=== PATIENT | male | born 1950 | race African-American/Black ===

== ENCOUNTER 2020-11-12 03:27 | Observation (INO) | payer MEDICARE, MEDICAID, SELFPAY ==
[2020-11-12] VITALS (87 sets, daily range): BP systolic 104–220; BP diastolic 68–123; PULSE 77–99; RESP 12–48; TEMP 36.1–36.8; O2SAT 95–100
--- NOTE | 2020-11-12 03:40 | DI.RAD.S_ITS ---
PROCEDURE: XR CHEST 1V INDICATIONS: dyspnea TECHNIQUE: One view of the chest was acquired. COMPARISON: None. FINDINGS: Surgical changes and devices: Pacemaker in place.. Lungs and pleura: Lungs are abnormal, with large lung volumes but no pneumonia is found.. No pleural effusions or pneumothorax. Mediastinum: Mediastinal contours appear normal. Heart size is normal. Bones and chest wall: No suspicious bony lesions. Overlying soft tissues appear unremarkable. IMPRESSION: Pacemaker in place, large lung volumes, suspect COPD, no pneumonia found. 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 Dictated by: Vito Dumont M.D. on 11/12/2020 at 7:50 Approved by: Vito Dumont M.D. on 11/12/2020 at 7:51
--- NOTE | 2020-11-12 04:00 | ED.AMS ---
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 Rate 20 18 19 Blood Pressure 125/77 128/80 130/75 Pulse Oximetry 98 99 98 11/12/20 10:55 11/12/20 11:00 11/12/20 11:05 Pulse Rate 92 H 92 H 91 H Respiratory Rate 20 18 19 Blood Pressure 133/81 126/85 128/85 Pulse Oximetry 98 98 98 11/12/20 11:10 11/12/20 11:15 11/12/20 11:20 Pulse Rate 91 H 91 H 98 H Respiratory Rate 22 22 23 Blood Pressure 130/83 127/87 210/123 H Pulse Oximetry 97 97 99 11/12/20 11:26 11/12/20 11:30 11/12/20 11:42 Pulse Rate 91 H 92 H 93 H Respiratory Rate 20 21 25 H Blood Pressure 132/78 133/77 123/76 Pulse Oximetry 98 98 97 11/12/20 11:50 11/12/20 11:55 11/12/20 12:00 Pulse Rate 90 90 87 Respiratory Rate 17 28 H 35 H Blood Pressure 117/74 114/73 Pulse Oximetry 97 97 96 11/12/20 12:05 11/12/20 12:10 07/03/21 12:15 Pulse Rate 87 84 83 Respiratory Rate 22 25 H 17 Blood Pressure 117/72 120/77 122/86 Pulse Oximetry 96 97 95 11/12/20 12:20 11/12/20 12:26 11/12/20 12:30 Pulse Rate 83 82 83 Respiratory Rate 15 15 22 Blood Pressure 120/74 119/83 120/78 Pulse Oximetry 96 96 97 11/12/20 12:36 11/12/20 12:41 11/12/20 12:45 Pulse Rate 83 84 83 Respiratory Rate 18 Blood Pressure 133/81 113/76 135/82 Pulse Oximetry 98 97 98 11/12/20 12:50 11/12/20 12:55 11/12/20 13:00 Pulse Rate 80 80 79 Respiratory Rate Blood Pressure 136/86 126/82 130/84 Pulse Oximetry 97 98 98 11/12/20 13:05 11/12/20 13:10 11/12/20 13:20 Pulse Rate 79 81 79 Respiratory Rate 17 Blood Pressure 130/88 123/81 124/91 H Pulse Oximetry 98 97 98 11/12/20 13:26 11/12/20 13:30 11/12/20 13:35 Pulse Rate 78 78 80 Respiratory Rate Blood Pressure 125/91 H 111/87 127/87 Pulse Oximetry 97 98 98 11/12/20 13:56 11/12/20 14:00 11/12/20 14:23 Pulse Rate 80 88 86 Respiratory Rate 16 17 23 Blood Pressure 142/88 H 141/85 H 131/91 H Pulse Oximetry 98 97 99 11/12/20 14:30 Pulse Rate 81 Respiratory Rate 12 Blood Pressure 124/82 Pulse Oximetry 99 MDM - Altered Mental Status <Lloyd Caceres, DO - Last Filed: 11/13/20 06:22> Lab Data Result diagrams: 11/12/20 05:00 11/12/20 07:26 Labs: Lab Results 11/12/20 11/12/20 11/12/20 Range/Units 05:00 05:00 05:00 WBC 8.9 (4.5-11.0) X10^3/uL RBC 5.07 (4.5-5.9) X10^6/uL Hgb 15.4 (13.5-17.5) g/dL Hct 45.5 (41-53) % MCV 89.8 (80-100) fL MCH 30.3 (26-34) PG MCHC 33.7 (30-36) % RDW 15.5 H (11.6-14.8) % Plt Count 236 (150-400) X10^3/uL Neut % (Auto) 81.2 H (50-75) % Lymph % (Auto) 8.5 L (25-40) % [place] % (Auto) 5.5 (3-14) % Eos % (Auto) 0.5 L (2-4) % Baso % (Auto) 4.3 H (0-2) % Neut # (Auto) 7200 H (7763-2315) /uL Lymph # (Auto) 800 L (8736-4866) /uL [place] # (Auto) 500 (0-900) /uL Eos # (Auto) 0 (0-450) /uL Baso # (Auto) 400 H (0-100) /uL PT (10.1-12.7) SECONDS INR (0.9-1.3) APTT (26.4-36.2) SECONDS Sodium (137-145) mmol/L Potassium (3.4-5.1) mmol/L Chloride (98-107) mmol/L Carbon Dioxide (22-32) mmol/L BUN (9-20) mg/dL Creatinine (0.66-1.25) mg/dL Estimated GFR (>60) mL/min BUN/Creatinine Ratio (6-22) Glucose (80-110) mg/dL Lactate 1.7 (0.7-2.1) mmol/L Calcium (8.4-10.2) mg/dL Total Bilirubin (0.2-1.3) mg/dL AST (17-59) IU/L ALT (<50) IU/L Alkaline Phosphatase (38-126) U/L Ammonia (9-30) umol/L Total Creatine Kinase (55-170) U/L CK-MB (CK-2) (<2.37) ng/mL CK-MB (CK-2) Rel Index (1.5-5.0) % Troponin I (0.01-0.034) ng/mL NT-Pro-B Natriuret Pep (<125) pg/mL Total Protein (6.3-8.2) g/dL Albumin (3.5-5.0) g/dL Globulin (1.7-4.1) g/dL Albumin/Globulin Ratio (1.0-2.8) Procalcitonin (<0.5) ng/mL TSH (0.47-4.68) uIU/mL Prolactin (3.7-17.9) ng/mL Urine Color Urine Appearance Urine pH (4.5-8.0) Ur Specific [place] (1.000-1.035) Urine Protein (Negative) Urine Glucose (UA) (Negative) g/dL Urine Ketones (NEGATIVE) Urine Occult Blood (Negative) Urine Nitrate (Negative) Urine Bilirubin (NEGATIVE) Urine Urobilinogen (0.2) E.U./dL Ur Leukocyte Esterase (NEGATIVE) Urine RBC (0-5/HPF) Urine WBC (0-5/HPF) Urine Bacteria (None) Ur Culture Indicated? Salicylates < 1.0 (<20) mg/dL U Opiates 300ng/mL cut (Negative) Ur Oxycodone Screen (Negative) Urine Methadone Screen (Negative) Acetaminophen < 10 L (10-30) ug/mL Ur Barbiturates Screen (Negative) U Tricyclic Antidepress (Negative) Ur Phencyclidine Scrn (Negative) Ur Amphetamines Screen (Negative) U Methamphetamines Scrn (Negative) Ur MDMA Scrn (Ecstasy) (Negative) U Benzodiazepines Scrn (Negative) Urine Cocaine Screen (Negative) U Marijuana (THC) Screen (Negative) Ethyl Alcohol < 10 ( - 10) mg/dL SARS-CoV-2 (PCR) (Negative) 11/12/20 11/12/20 11/12/20 Range/Units 07:26 07:26 07:26 WBC (4.5-11.0) X10^3/uL RBC (4.5-5.9) X10^6/uL Hgb (13.5-17.5) g/dL Hct (41-53) % MCV (80-100) fL MCH (26-34) PG MCHC (30-36) % RDW (11.6-14.8) % Plt Count (150-400) X10^3/uL Neut % (Auto) (50-75) % Lymph % (Auto) (25-40) % [place] % (Auto) (3-14) % Eos % (Auto) (2-4) % Baso % (Auto) (0-2) % Neut # (Auto) (8474-7853) /uL Lymph # (Auto) (1973-5069) /uL [place] # (Auto) (0-900) /uL Eos # (Auto) (0-450) /uL Baso # (Auto) (0-100) /uL PT 13.8 H (10.1-12.7) SECONDS INR 1.2 (0.9-1.3) APTT 29 (26.4-36.2) SECONDS Sodium 138 (137-145) mmol/L Potassium 3.8 (3.4-5.1) mmol/L Chloride 102 (98-107) mmol/L Carbon Dioxide 27 (22-32) mmol/L BUN 17 (9-20) mg/dL Creatinine 0.79 (0.66-1.25) mg/dL Estimated GFR > 60.0 (>60) mL/min BUN/Creatinine Ratio 21.5 (6-22) Glucose 72 L (80-110) mg/dL Lactate (0.7-2.1) mmol/L Calcium 9.9 (8.4-10.2) mg/dL Total Bilirubin 0.9 (0.2-1.3) mg/dL AST 78 H (17-59) IU/L ALT 57 H (<50) IU/L Alkaline Phosphatase 65 (38-126) U/L Ammonia (9-30) umol/L Total Creatine Kinase (55-170) U/L CK-MB (CK-2) (<2.37) ng/mL CK-MB (CK-2) Rel Index (1.5-5.0) % Troponin I (0.01-0.034) ng/mL NT-Pro-B Natriuret Pep 9500 H (<125) pg/mL Total Protein 8.1 (6.3-8.2) g/dL Albumin 4.1 (3.5-5.0) g/dL Globulin 4.0 (1.7-4.1) g/dL Albumin/Globulin Ratio 1.0 (1.0-2.8) Procalcitonin 0.14 (<0.5) ng/mL TSH 0.621 (0.47-4.68) uIU/mL Prolactin 13.6 (3.7-17.9) ng/mL Urine Color Urine Appearance Urine pH (4.5-8.0) Ur Specific [place] (1.000-1.035) Urine Protein (Negative) Urine Glucose (UA) (Negative) g/dL Urine Ketones (NEGATIVE) Urine Occult Blood (Negative) Urine Nitrate (Negative) Urine Bilirubin (NEGATIVE) Urine Urobilinogen (0.2) E.U./dL Ur Leukocyte Esterase (NEGATIVE) Urine RBC (0-5/HPF) Urine WBC (0-5/HPF) Urine Bacteria (None) Ur Culture Indicated? Salicylates (<20) mg/dL U Opiates 300ng/mL cut (Negative) Ur Oxycodone Screen (Negative) Urine Methadone Screen (Negative) Acetaminophen (10-30) ug/mL Ur Barbiturates Screen (Negative) U Tricyclic Antidepress (Negative) Ur Phencyclidine Scrn (Negative) Ur Amphetamines Screen (Negative) U Methamphetamines Scrn (Negative) Ur MDMA Scrn (Ecstasy) (Negative) U Benzodiazepines Scrn (Negative) Urine Cocaine Screen (Negative) U Marijuana (THC) Screen (Negative) Ethyl Alcohol ( - 10) mg/dL SARS-CoV-2 (PCR) (Negative) 11/12/20 11/12/20 11/12/20 Range/Units 07:26 08:38 10:32 WBC (4.5-11.0) X10^3/uL RBC (4.5-5.9) X10^6/uL Hgb (13.5-17.5) g/dL Hct (41-53) % MCV (80-100) fL MCH (26-34) PG MCHC (30-36) % RDW (11.6-14.8) % Plt Count (150-400) X10^3/uL Neut % (Auto) (50-75) % Lymph % (Auto) (25-40) % [place] % (Auto) (3-14) % Eos % (Auto) (2-4) % Baso % (Auto) (0-2) % Neut # (Auto) (5266-0104) /uL Lymph # (Auto) (4163-3778) /uL [place] # (Auto) (0-900) /uL Eos # (Auto) (0-450) /uL Baso # (Auto) (0-100) /uL PT (10.1-12.7) SECONDS INR (0.9-1.3) APTT (26.4-36.2) SECONDS Sodium (137-145) mmol/L Potassium (3.4-5.1) mmol/L Chloride (98-107) mmol/L Carbon Dioxide (22-32) mmol/L BUN (9-20) mg/dL Creatinine (0.66-1.25) mg/dL Estimated GFR (>60) mL/min BUN/Creatinine Ratio (6-22) Glucose (80-110) mg/dL Lactate (0.7-2.1) mmol/L Calcium (8.4-10.2) mg/dL Total Bilirubin (0.2-1.3) mg/dL AST (17-59) IU/L ALT (<50) IU/L Alkaline Phosphatase (38-126) U/L Ammonia < 9 L (9-30) umol/L Total Creatine Kinase 374 H (55-170) U/L CK-MB (CK-2) 6.10 H (<2.37) ng/mL CK-MB (CK-2) Rel Index 1.6 (1.5-5.0) % Troponin I 0.072 H 0.067 H (0.01-0.034) ng/mL NT-Pro-B Natriuret Pep (<125) pg/mL Total Protein (6.3-8.2) g/dL Albumin (3.5-5.0) g/dL Globulin (1.7-4.1) g/dL Albumin/Globulin Ratio (1.0-2.8) Procalcitonin (<0.5) ng/mL TSH (0.47-4.68) uIU/mL Prolactin (3.7-17.9) ng/mL Urine Color Urine Appearance Urine pH (4.5-8.0) Ur Specific [place] (1.000-1.035) Urine Protein (Negative) Urine Glucose (UA) (Negative) g/dL Urine Ketones (NEGATIVE) Urine Occult Blood (Negative) Urine Nitrate (Negative) Urine Bilirubin (NEGATIVE) Urine Urobilinogen (0.2) E.U./dL Ur Leukocyte Esterase (NEGATIVE) Urine RBC (0-5/HPF) Urine WBC (0-5/HPF) Urine Bacteria (None) Ur Culture Indicated? Salicylates (<20) mg/dL U Opiates 300ng/mL cut (Negative) Ur Oxycodone Screen (Negative) Urine Methadone Screen (Negative) Acetaminophen (10-30) ug/mL Ur Barbiturates Screen (Negative) U Tricyclic Antidepress (Negative) Ur Phencyclidine Scrn (Negative) Ur Amphetamines Screen (Negative) U Methamphetamines Scrn (Negative) Ur MDMA Scrn (Ecstasy) (Negative) U Benzodiazepines Scrn (Negative) Urine Cocaine Screen (Negative) U Marijuana (THC) Screen (Negative) Ethyl Alcohol ( - 10) mg/dL SARS-CoV-2 (PCR) (Negative) 11/12/20 11/12/20 11/12/20 Range/Units 10:39 14:23 14:23 WBC (4.5-11.0) X10^3/uL RBC (4.5-5.9) X10^6/uL Hgb (13.5-17.5) g/dL Hct (41-53) % MCV (80-100) fL MCH (26-34) PG MCHC (30-36) % RDW (11.6-14.8) % Plt Count (150-400) X10^3/uL Neut % (Auto) (50-75) % Lymph % (Auto) (25-40) % [place] % (Auto) (3-14) % Eos % (Auto) (2-4) % Baso % (Auto) (0-2) % Neut # (Auto) (0129-2281) /uL Lymph # (Auto) (8428-1651) /uL [place] # (Auto) (0-900) /uL Eos # (Auto) (0-450) /uL Baso # (Auto) (0-100) /uL PT (10.1-12.7) SECONDS INR (0.9-1.3) APTT (26.4-36.2) SECONDS Sodium (137-145) mmol/L Potassium (3.4-5.1) mmol/L Chloride (98-107) mmol/L Carbon Dioxide (22-32) mmol/L BUN (9-20) mg/dL Creatinine (0.66-1.25) mg/dL Estimated GFR (>60) mL/min BUN/Creatinine Ratio (6-22) Glucose (80-110) mg/dL Lactate (0.7-2.1) mmol/L Calcium (8.4-10.2) mg/dL Total Bilirubin (0.2-1.3) mg/dL AST (17-59) IU/L ALT (<50) IU/L Alkaline Phosphatase (38-126) U/L Ammonia (9-30) umol/L Total Creatine Kinase (55-170) U/L CK-MB (CK-2) (<2.37) ng/mL CK-MB (CK-2) Rel Index (1.5-5.0) % Troponin I (0.01-0.034) ng/mL NT-Pro-B Natriuret Pep (<125) pg/mL Total Protein (6.3-8.2) g/dL Albumin (3.5-5.0) g/dL Globulin (1.7-4.1) g/dL Albumin/Globulin Ratio (1.0-2.8) Procalcitonin (<0.5) ng/mL TSH (0.47-4.68) uIU/mL Prolactin (3.7-17.9) ng/mL Urine Color Yellow Urine Appearance Clear Urine pH 5.0 (4.5-8.0) Ur Specific [place] 1.015 (1.000-1.035) Urine Protein Negative (Negative) Urine Glucose (UA) Negative (Negative) g/dL Urine Ketones Negative (NEGATIVE) Urine Occult Blood 2+ H (Negative) Urine Nitrate Negative (Negative) Urine Bilirubin Negative (NEGATIVE) Urine Urobilinogen 0.2 (0.2) E.U./dL Ur Leukocyte Esterase Negative (NEGATIVE) Urine RBC 0-1/hpf (0-5/HPF) Urine WBC 0-1/hpf (0-5/HPF) Urine Bacteria None seen (None) Ur Culture Indicated? Cult not indicated Salicylates (<20) mg/dL U Opiates 300ng/mL cut Negative (Negative) Ur Oxycodone Screen Negative (Negative) Urine Methadone Screen Negative (Negative) Acetaminophen (10-30) ug/mL Ur Barbiturates Screen Negative (Negative) U Tricyclic Antidepress Negative (Negative) Ur Phencyclidine Scrn Negative (Negative) Ur Amphetamines Screen Negative (Negative) U Methamphetamines Scrn Negative (Negative) Ur MDMA Scrn (Ecstasy) Negative (Negative) U Benzodiazepines Scrn Negative (Negative) Urine Cocaine Screen Positive H (Negative) U Marijuana (THC) Screen Negative (Negative) Ethyl Alcohol ( - 10) mg/dL SARS-CoV-2 (PCR) Negative (Negative) <Umm Rosas MD - Last Filed: 11/12/20 17:51> Lab Data Labs: Lab Results 11/12/20 11/12/20 11/12/20 Range/Units 05:00 05:00 05:00 WBC 8.9 (4.5-11.0) X10^3/uL RBC 5.07 (4.5-5.9) X10^6/uL Hgb 15.4 (13.5-17.5) g/dL Hct 45.5 (41-53) % MCV 89.8 (80-100) fL MCH 30.3 (26-34) PG MCHC 33.7 (30-36) % RDW 15.5 H (11.6-14.8) % Plt Count 236 (150-400) X10^3/uL Neut % (Auto) 81.2 H (50-75) % Lymph % (Auto) 8.5 L (25-40) % [place] % (Auto) 5.5 (3-14) % Eos % (Auto) 0.5 L (2-4) % Baso % (Auto) 4.3 H (0-2) % Neut # (Auto) 7200 H (3072-9500) /uL Lymph # (Auto) 800 L (4502-0255) /uL [place] # (Auto) 500 (0-900) /uL Eos # (Auto) 0 (0-450) /uL Baso # (Auto) 400 H (0-100) /uL PT (10.1-12.7) SECONDS INR (0.9-1.3) APTT (26.4-36.2) SECONDS Sodium (137-145) mmol/L Potassium (3.4-5.1) mmol/L Chloride (98-107) mmol/L Carbon Dioxide (22-32) mmol/L BUN (9-20) mg/dL Creatinine (0.66-1.25) mg/dL Estimated GFR (>60) mL/min BUN/Creatinine Ratio (6-22) Glucose (80-110) mg/dL Lactate 1.7 (0.7-2.1) mmol/L Calcium (8.4-10.2) mg/dL Total Bilirubin (0.2-1.3) mg/dL AST (17-59) IU/L ALT (<50) IU/L Alkaline Phosphatase (38-126) U/L Ammonia (9-30) umol/L Total Creatine Kinase (55-170) U/L CK-MB (CK-2) (<2.37) ng/mL CK-MB (CK-2) Rel Index (1.5-5.0) % Troponin I (0.01-0.034) ng/mL NT-Pro-B Natriuret Pep (<125) pg/mL Total Protein (6.3-8.2) g/dL Albumin (3.5-5.0) g/dL Globulin (1.7-4.1) g/dL Albumin/Globulin Ratio (1.0-2.8) Procalcitonin (<0.5) ng/mL TSH (0.47-4.68) uIU/mL Prolactin (3.7-17.9) ng/mL Urine Color Urine Appearance Urine pH (4.5-8.0) Ur Specific [place] (1.000-1.035) Urine Protein (Negative) Urine Glucose (UA) (Negative) g/dL Urine Ketones (NEGATIVE) Urine Occult Blood (Negative) Urine Nitrate (Negative) Urine Bilirubin (NEGATIVE) Urine Urobilinogen (0.2) E.U./dL Ur Leukocyte Esterase (NEGATIVE) Urine RBC (0-5/HPF) Urine WBC (0-5/HPF) Urine Bacteria (None) Ur Culture Indicated? Salicylates < 1.0 (<20) mg/dL U Opiates 300ng/mL cut (Negative) Ur Oxycodone Screen (Negative) Urine Methadone Screen (Negative) Acetaminophen < 10 L (10-30) ug/mL Ur Barbiturates Screen (Negative) U Tricyclic Antidepress (Negative) Ur Phencyclidine Scrn (Negative) Ur Amphetamines Screen (Negative) U Methamphetamines Scrn (Negative) Ur MDMA Scrn (Ecstasy) (Negative) U Benzodiazepines Scrn (Negative) Urine Cocaine Screen (Negative) U Marijuana (THC) Screen (Negative) Ethyl Alcohol < 10 ( - 10) mg/dL SARS-CoV-2 (PCR) (Negative) 11/12/20 11/12/20 11/12/20 Range/Units 07:26 07:26 07:26 WBC (4.5-11.0) X10^3/uL RBC (4.5-5.9) X10^6/uL Hgb (13.5-17.5) g/dL Hct (41-53) % MCV (80-100) fL MCH (26-34) PG MCHC (30-36) % RDW (11.6-14.8) % Plt Count (150-400) X10^3/uL Neut % (Auto) (50-75) % Lymph % (Auto) (25-40) % [place] % (Auto) (3-14) % Eos % (Auto) (2-4) % Baso % (Auto) (0-2) % Neut # (Auto) (0735-9760) /uL Lymph # (Auto) (2658-7783) /uL [place] # (Auto) (0-900) /uL Eos # (Auto) (0-450) /uL Baso # (Auto) (0-100) /uL PT 13.8 H (10.1-12.7) SECONDS INR 1.2 (0.9-1.3) APTT 29 (26.4-36.2) SECONDS Sodium 138 (137-145) mmol/L Potassium 3.8 (3.4-5.1) mmol/L Chloride 102 (98-107) mmol/L Carbon Dioxide 27 (22-32) mmol/L BUN 17 (9-20) mg/dL Creatinine 0.79 (0.66-1.25) mg/dL Estimated GFR > 60.0 (>60) mL/min BUN/Creatinine Ratio 21.5 (6-22) Glucose 72 L (80-110) mg/dL Lactate (0.7-2.1) mmol/L Calcium 9.9 (8.4-10.2) mg/dL Total Bilirubin 0.9 (0.2-1.3) mg/dL AST 78 H (17-59) IU/L ALT 57 H (<50) IU/L Alkaline Phosphatase 65 (38-126) U/L Ammonia (9-30) umol/L Total Creatine Kinase (55-170) U/L CK-MB (CK-2) (<2.37) ng/mL CK-MB (CK-2) Rel Index (1.5-5.0) % Troponin I (0.01-0.034) ng/mL NT-Pro-B Natriuret Pep 9500 H (<125) pg/mL Total Protein 8.1 (6.3-8.2) g/dL Albumin 4.1 (3.5-5.0) g/dL Globulin 4.0 (1.7-4.1) g/dL Albumin/Globulin Ratio 1.0 (1.0-2.8) Procalcitonin 0.14 (<0.5) ng/mL TSH 0.621 (0.47-4.68) uIU/mL Prolactin 13.6 (3.7-17.9) ng/mL Urine Color Urine Appearance Urine pH (4.5-8.0) Ur Specific [place] (1.000-1.035) Urine Protein (Negative) Urine Glucose (UA) (Negative) g/dL Urine Ketones (NEGATIVE) Urine Occult Blood (Negative) Urine Nitrate (Negative) Urine Bilirubin (NEGATIVE) Urine Urobilinogen (0.2) E.U./dL Ur Leukocyte Esterase (NEGATIVE) Urine RBC (0-5/HPF) Urine WBC (0-5/HPF) Urine Bacteria (None) Ur Culture Indicated? Salicylates (<20) mg/dL U Opiates 300ng/mL cut (Negative) Ur Oxycodone Screen (Negative) Urine Methadone Screen (Negative) Acetaminophen (10-30) ug/mL Ur Barbiturates Screen (Negative) U Tricyclic Antidepress (Negative) Ur Phencyclidine Scrn (Negative) Ur Amphetamines Screen (Negative) U Methamphetamines Scrn (Negative) Ur MDMA Scrn (Ecstasy) (Negative) U Benzodiazepines Scrn (Negative) Urine Cocaine Screen (Negative) U Marijuana (THC) Screen (Negative) Ethyl Alcohol ( - 10) mg/dL SARS-CoV-2 (PCR) (Negative) 07/07/3111/12/20 11/12/20 Range/Units 07:26 08:38 10:32 WBC (4.5-11.0) X10^3/uL RBC (4.5-5.9) X10^6/uL Hgb (13.5-17.5) g/dL Hct (41-53) % MCV (80-100) fL MCH (26-34) PG MCHC (30-36) % RDW (11.6-14.8) % Plt Count (150-400) X10^3/uL Neut % (Auto) (50-75) % Lymph % (Auto) (25-40) % [place] % (Auto) (3-14) % Eos % (Auto) (2-4) % Baso % (Auto) (0-2) % Neut # (Auto) (0766-3364) /uL Lymph # (Auto) (9675-3760) /uL [place] # (Auto) (0-900) /uL Eos # (Auto) (0-450) /uL Baso # (Auto) (0-100) /uL PT (10.1-12.7) SECONDS INR (0.9-1.3) APTT (26.4-36.2) SECONDS Sodium (137-145) mmol/L Potassium (3.4-5.1) mmol/L Chloride (98-107) mmol/L Carbon Dioxide (22-32) mmol/L BUN (9-20) mg/dL Creatinine (0.66-1.25) mg/dL Estimated GFR (>60) mL/min BUN/Creatinine Ratio (6-22) Glucose (80-110) mg/dL Lactate (0.7-2.1) mmol/L Calcium (8.4-10.2) mg/dL Total Bilirubin (0.2-1.3) mg/dL AST (17-59) IU/L ALT (<50) IU/L Alkaline Phosphatase (38-126) U/L Ammonia < 9 L (9-30) umol/L Total Creatine Kinase 374 H (55-170) U/L CK-MB (CK-2) 6.10 H (<2.37) ng/mL CK-MB (CK-2) Rel Index 1.6 (1.5-5.0) % Troponin I 0.072 H 0.067 H (0.01-0.034) ng/mL NT-Pro-B Natriuret Pep (<125) pg/mL Total Protein (6.3-8.2) g/dL Albumin (3.5-5.0) g/dL Globulin (1.7-4.1) g/dL Albumin/Globulin Ratio (1.0-2.8) Procalcitonin (<0.5) ng/mL TSH (0.47-4.68) uIU/mL Prolactin (3.7-17.9) ng/mL Urine Color Urine Appearance Urine pH (4.5-8.0) Ur Specific [place] (1.000-1.035) Urine Protein (Negative) Urine Glucose (UA) (Negative) g/dL Urine Ketones (NEGATIVE) Urine Occult Blood (Negative) Urine Nitrate (Negative) Urine Bilirubin (NEGATIVE) Urine Urobilinogen (0.2) E.U./dL Ur Leukocyte Esterase (NEGATIVE) Urine RBC (0-5/HPF) Urine WBC (0-5/HPF) Urine Bacteria (None) Ur Culture Indicated? Salicylates (<20) mg/dL U Opiates 300ng/mL cut (Negative) Ur Oxycodone Screen (Negative) Urine Methadone Screen (Negative) Acetaminophen (10-30) ug/mL Ur Barbiturates Screen (Negative) U Tricyclic Antidepress (Negative) Ur Phencyclidine Scrn (Negative) Ur Amphetamines Screen (Negative) U Methamphetamines Scrn (Negative) Ur MDMA Scrn (Ecstasy) (Negative) U Benzodiazepines Scrn (Negative) Urine Cocaine Screen (Negative) U Marijuana (THC) Screen (Negative) Ethyl Alcohol ( - 10) mg/dL SARS-CoV-2 (PCR) (Negative) 11/12/20 11/12/20 11/12/20 Range/Units 10:39 14:23 14:23 WBC (4.5-11.0) X10^3/uL RBC (4.5-5.9) X10^6/uL Hgb (13.5-17.5) g/dL Hct (41-53) % MCV (80-100) fL MCH (26-34) PG MCHC (30-36) % RDW (11.6-14.8) % Plt Count (150-400) X10^3/uL Neut % (Auto) (50-75) % Lymph % (Auto) (25-40) % [place] % (Auto) (3-14) % Eos % (Auto) (2-4) % Baso % (Auto) (0-2) % Neut # (Auto) (9037-5725) /uL Lymph # (Auto) (5050-8877) /uL [place] # (Auto) (0-900) /uL Eos # (Auto) (0-450) /uL Baso # (Auto) (0-100) /uL PT (10.1-12.7) SECONDS INR (0.9-1.3) APTT (26.4-36.2) SECONDS Sodium (137-145) mmol/L Potassium (3.4-5.1) mmol/L Chloride (98-107) mmol/L Carbon Dioxide (22-32) mmol/L BUN (9-20) mg/dL Creatinine (0.66-1.25) mg/dL Estimated GFR (>60) mL/min BUN/Creatinine Ratio (6-22) Glucose (80-110) mg/dL Lactate (0.7-2.1) mmol/L Calcium (8.4-10.2) mg/dL Total Bilirubin (0.2-1.3) mg/dL AST (17-59) IU/L ALT (<50) IU/L Alkaline Phosphatase (38-126) U/L Ammonia (9-30) umol/L Total Creatine Kinase (55-170) U/L CK-MB (CK-2) (<2.37) ng/mL CK-MB (CK-2) Rel Index (1.5-5.0) % Troponin I (0.01-0.034) ng/mL NT-Pro-B Natriuret Pep (<125) pg/mL Total Protein (6.3-8.2) g/dL Albumin (3.5-5.0) g/dL Globulin (1.7-4.1) g/dL Albumin/Globulin Ratio (1.0-2.8) Procalcitonin (<0.5) ng/mL TSH (0.47-4.68) uIU/mL Prolactin (3.7-17.9) ng/mL Urine Color Yellow Urine Appearance Clear Urine pH 5.0 (4.5-8.0) Ur Specific [place] 1.015 (1.000-1.035) Urine Protein Negative (Negative) Urine Glucose (UA) Negative (Negative) g/dL Urine Ketones Negative (NEGATIVE) Urine Occult Blood 2+ H (Negative) Urine Nitrate Negative (Negative) Urine Bilirubin Negative (NEGATIVE) Urine Urobilinogen 0.2 (0.2) E.U./dL Ur Leukocyte Esterase Negative (NEGATIVE) Urine RBC 0-1/hpf (0-5/HPF) Urine WBC 0-1/hpf (0-5/HPF) Urine Bacteria None seen (None) Ur Culture Indicated? Cult not indicated Salicylates (<20) mg/dL U Opiates 300ng/mL cut Negative (Negative) Ur Oxycodone Screen Negative (Negative) Urine Methadone Screen Negative (Negative) Acetaminophen (10-30) ug/mL Ur Barbiturates Screen Negative (Negative) U Tricyclic Antidepress Negative (Negative) Ur Phencyclidine Scrn Negative (Negative) Ur Amphetamines Screen Negative (Negative) U Methamphetamines Scrn Negative (Negative) Ur MDMA Scrn (Ecstasy) Negative (Negative) U Benzodiazepines Scrn Negative (Negative) Urine Cocaine Screen Positive H (Negative) U Marijuana (THC) Screen Negative (Negative) Ethyl Alcohol ( - 10) mg/dL SARS-CoV-2 (PCR) Negative (Negative) MDM Narrative Medical decision making narrative: 70-year-old gentleman with a history of significant coronary artery disease, recent admits for hypertensive crisis with cognitive deficits and confusion. He reports now that he was having some chest pain earlier in the afternoon was driving became confused pulled off to the side of the road was found by police was eventually brought to the emergency department. Blood pressures were significantly elevated IV access was difficult. After IV access was obtained he was given all of his typical outpatient medications including amlodipine 5 mg, carvedilol 12.5 mg clonidine 0.3 mg isosorbide mononitrate 30 mg lisinopril 20 mg prazosin 5 mg and 80 mg of IV Lasix. As he continued to complain of chest pain, had a positive troponin, remains somewhat confused, had blood pressures in the 220/110 systolic range he was also started on a nicardipine drip. Over the next hours his blood pressure came down nicely. Multiple attempts were made to transfer him to a higher level of care with inpatient cardiology available however beds are not available. As his blood pressure is come down he is slightly more alert, his chest pain never was lower than a 5/10 however he was behaviorally absolutely pain free throughout his entire stay. Just prior to transfer to the floor in care for hospitalist Service, it became clear that the nicardipine drip that he was presumed to have been on for the course of the afternoon was calculated in appropriately and he was having minimal dose of this. It was completely discontinued and at this point it is clear that his oral hypertensive medications were effective in reducing his hypertensive crisis. He does continue to have signs and symptoms of congestive heart failure and it will be admitted for further evaluation and observation. <Umm Rosas MD - Last Filed: 11/12/20 17:51> Critical Care Time Critical Care Time: Yes Total Critical Care Time: 46 Attestation: Critical care time is separate from other billable procedures. This critical care time includes consultation with family and other consulting doctors, review of records, and interpretation of data from labs, EKGs and imaging as well as managements of hypertensive crisis with IV blood pressure medications, IV Lasix evaluation for acute coronary syndrome and acute neurologic changes. Discharge Plan Departure Patient Disposition: Admitted As Inpatient Clinical Impression: Hypertensive crisis Altered mental status Qualifiers: Altered mental status type: disorientation Qualified Code(s): R41.0 - Disorientation, unspecified Congestive heart failure Qualifiers: Heart failure type: unspecified Heart failure chronicity: acute on chronic Qualified Code(s): I50.9 - Heart failure, unspecified Chest pain Qualifiers: Chest pain type: unspecified Qualified Code(s): R07.9 - Chest pain, unspecified Admit Date/Time: 11/12/20 14:59 Admit Provider: Gold Ashby
[2020-11-12 05:17] LABS: Add Manual Diff / Slide Review NO; Basophils Absolute Auto 400 /uL (0-100); Basophils Percent Auto 4.3 % (0-2); Eosinophils Absolute Auto 0 /uL (0-450); Eosinophils Percent Auto 0.5 % (2-4); Hematocrit 45.5 % (41-53); Hemoglobin 15.4 g/dL (13.5-17.5); Lymphocytes Absolute Auto 800 /uL (1100-4500); Lymphocytes Percent Auto 8.5 % (25-40); Mean Corpuscular HGB Conc 33.7 % (30-36); Mean Corpuscular Hemoglobin 30.3 PG (26-34); Mean Corpuscular Volume 89.8 fL (80-100); Monocytes Absolute Auto 500 /uL (0-900); Monocytes Percent Auto 5.5 % (3-14); Neutrophils Absolute Auto 7200 /uL (1500-7000); Neutrophils Percent Auto 81.2 % (50-75); Platelet Count 236 X10^3/uL (150-400); Red Blood Cell Count 5.07 X10^6/uL (4.5-5.9); Red Cell Distribution Width 15.5 % (11.6-14.8); White Blood Cell Count 8.9 X10^3/uL (4.5-11.0)
[2020-11-12 05:25] LABS: Acetaminophen < 10 ug/mL (10-30); Ethanol (ETOH) < 10 mg/dL; Salicylate < 1.0 mg/dL (<20)
[2020-11-12 05:27] LABS: Lactate (Lactic Acid) 1.7 mmol/L (0.7-2.1)
[2020-11-12] MEDS: carvediloL 12.5 MG TABLET PO ×2 (06:36→20:48)
--- NOTE | 2020-11-12 06:51 | PC.NURSE ---
we were unable to obtain IV access,lab was unable to obtain blood,I leslie some blood from left hand, unable to access EJ vein or right central line.PICC person paged.
--- NOTE | 2020-11-12 07:28 | DI.RAD.S_ITS ---
PROCEDURE: XR CHEST 1V INDICATIONS: line placement TECHNIQUE: One view of the chest was acquired. COMPARISON: [facility], CR, XR CHEST 1V, 11/12/2020, 4:13. FINDINGS: Surgical changes and devices: Pacemaker. Right IJ line tip projects to SVC right atrial junction. Lungs and pleura: Lungs are clear. No pleural effusions or pneumothorax. Mediastinum: Mediastinal contours appear normal. Heart size is normal. Bones and chest wall: No suspicious bony lesions. Overlying soft tissues appear unremarkable. IMPRESSION: 1. Central line in satisfactory position. 2. No evidence acute pulmonary process. Dictated by: Gregory Dillon M.D. on 11/12/2020 at 7:17 Approved by: Gregory Dillon M.D. on 11/12/2020 at 7:17
[2020-11-12] MEDS: SODIUM CHLORIDE 0.9% 1,000 ML 150 ML IV ×2 (07:47→15:03)
[2020-11-12] MEDS: cloNIDine 0.1 MG TABLET 0.3 MG PO ×2 (07:47→20:48)
[2020-11-12] MEDS: AMLODIPINE 5 MG TABLET PO (07:47)
[2020-11-12] MEDS: HYDROMORPHONE 1 MG INJ IV ×2 (07:49→11:45)
[2020-11-12] MEDS: TORSEMIDE 10 MG TABLET 40 MG PO (07:51)
[2020-11-12] MEDS: lisinopriL 20 MG TABLET PO ×2 (07:52→20:47)
[2020-11-12] MEDS: clonazePAM 0.5 MG TABLET PO ×2 (07:53→20:48)
[2020-11-12] MEDS: ISOSORBIDE MONONITRATE ER 30 MG TABLET PO (07:53)
[2020-11-12 07:56] LABS: INR 1.2 (0.9-1.3); Prothrombin Time 13.8 SECONDS (10.1-12.7)
[2020-11-12 07:58] LABS: PTT Partial Thromboplastin Tim 29 SECONDS (26.4-36.2)
[2020-11-12 08:00] LABS: Creatine Kinase 374 U/L (55-170)
[2020-11-12 08:02] LABS: Alanine Aminotransferase 57 IU/L (<50); Albumin 4.1 g/dL (3.5-5.0); Alkaline Phosphatase 65 U/L (38-126); Aspartate Aminotransferase 78 IU/L (17-59); BUN Creatinine Ratio 21.5 (6-22); Bilirubin Total 0.9 mg/dL (0.2-1.3); Blood Urea Nitrogen 17 mg/dL (9-20); Calcium 9.9 mg/dL (8.4-10.2); Carbon Dioxide 27 mmol/L (22-32); Chloride 102 mmol/L (98-107); Estimated Glomerular Filt Rate > 60.0 mL/min (>60); Glucose 72 mg/dL (80-110); HEMOLYSIS 43 (0-50); Potassium 3.8 mmol/L (3.4-5.1); Sodium 138 mmol/L (137-145); Total Protein 8.1 g/dL (6.3-8.2)
[2020-11-12 08:11] LABS: NT-proBNP (BNP-Adult 18+) 9500 pg/mL (<125)
[2020-11-12 08:13] LABS: Troponin I 0.072 ng/mL (0.01-0.034)
[2020-11-12 08:16] LABS: CKMB % Relative Index 1.6 % (1.5-5.0)
[2020-11-12 08:19] LABS: Procalcitonin 0.14 ng/mL (<0.5); Prolactin 13.6 ng/mL (3.7-17.9)
[2020-11-12 08:38] LABS: Thyroid Stimulating Hormone 0.621 uIU/mL (0.47-4.68)
[2020-11-12 09:11] LABS: Ammonia (NH3) < 9 umol/L (9-30)
[2020-11-12] MEDS: NITROGLYCERIN OINT 1 INCH/GM OINT...G. TOP (10:08)
[2020-11-12] MEDS: HEPARIN DRIP 25,000 UNIT/500 ML IV.SOLN 20 UNIT IV (10:10)
[2020-11-12] MEDS: HEPARIN 5,000 UNIT/ML VIAL 5000 UNIT IV (10:10)
[2020-11-12] MEDS: NICARDIPINE 25 MG in SODIUM CHLORIDE 0.9% 240 ML 50 ML IV (10:21)
[2020-11-12 11:05] LABS: Troponin I 0.067 ng/mL (0.01-0.034)
[2020-11-12 11:47] LABS: COVID19 -Nasal RAPID Negative (Negative)
--- NOTE | 2020-11-12 14:34 | PC.NURSE ---
Pt had reported he was still unable to void, upon further questioning discovered he has enlarged prostate and often difficulty voiding. He reports episodes of incontinence and issues with urinary retention. Bed was found to be soiled with urine, linens changed, spoke with Dr. Rosas about need for catheter. Bladder scanner shows 300mls in bladder. Verbal order received for urinary catheter.
[2020-11-12 14:43] LABS: Bacteria Urine None Seen
[2020-11-12] MEDS: FUROSEMIDE 100 MG/10 ML VIAL 80 MG IV (15:01)
[2020-11-12 15:09] LABS: Appearance Urine UA CLEAR; Bilirubin Urine UA NEGATIVE (NEGATIVE); Color Urine UA YELLOW; Glucose Urine UA NEGATIVE (Negative); Ketones Urine UA NEGATIVE (NEGATIVE); Leukocyte Esterase Urine UA NEGATIVE (NEGATIVE); Nitrite Urine UA NEGATIVE (Negative); Occult Blood Urine UA 2+ (Negative); Protein Urine UA NEGATIVE (Negative); Specific Gravity Urine UA 1.015 (1.000-1.035); Urobilinogen Urine UA 0.2 E.U./dL (0.2)
[2020-11-12 15:10] LABS: Culture Indicated Urine Cult Not Indicated; RBC Urine 0-1/HPF (0-5/HPF); WBC Urine 0-1/HPF (0-5/HPF)
[2020-11-12 15:12] LABS: Ur Creatinine Normal (Normal); Ur Specific Gravity Normal (Normal); Urine pH Normal (Normal)
[2020-11-12 15:13] LABS: UR Morphine/Opiate cutoff 300 Negative (Negative); Urine Amphetamines Negative (Negative); Urine Barbiturates Negative (Negative); Urine Benzodiazepines Negative (Negative); Urine Cocaine Positive (Negative); Urine MDMA Negative (Negative); Urine Methadone Negative (Negative); Urine Methamphetamines Negative (Negative); Urine Oxycodone Negative (Negative); Urine Phencyclidine Negative (Negative); Urine Tetrahydrocannabinol Negative (Negative); Urine Tricyclic Antidepressant Negative (Negative)
--- NOTE | 2020-11-12 16:53 | PC.NURSE ---
1615: At this time noted Nicardipine drip has been running at 5ml/hr instead of 50ml/hr, patients blood pressure stable at 124/78. Dr. Rosas informed and order given to d/c Nicardipin drip at this time. ICU admission to be maintained.
[2020-11-12 17:40] LABS: Troponin I 0.059 ng/mL (0.01-0.034)
[2020-11-12 18:29] LABS: PTT Partial Thromboplastin Tim > 400 SECONDS (26.4-36.2)
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
[2020-11-12] MEDS: QUETIAPINE 25 MG TABLET 75 MG PO (20:48)
[2020-11-12] MEDS: APIXABAN 5 MG TABLET PO (20:48)
[2020-11-12] MEDS: GABAPENTIN 300 MG CAPSULE PO (20:48)
[2020-11-12] MEDS: OXYCODONE/ACETAMINOPHEN 5/325 TABLET 2 TAB PO (21:51)
[2020-11-12] MEDS: diphenhydrAMINE 25 MG TABLET 50 MG PO (21:51)
[2020-11-12 21:56] LABS: Magnesium 1.7 mg/dL (1.6-2.3)
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
[2020-11-13] VITALS (47 sets, daily range): BP systolic 86–121; BP diastolic 53–84; PULSE 58–97; RESP 12–33; TEMP 36.2–37.1; O2SAT 93–100
[2020-11-13] MEDS: ALBUTEROL 2.5 MG/3 ML NEB (ADULT) INH ×6 (02:38→23:32)
[2020-11-13] MEDS: SODIUM CHLORIDE 0.9% FLUSH 10 ML IV ×3 (04:47→21:09)
[2020-11-13 05:58] LABS: Troponin I 0.078 ng/mL (0.01-0.034)
--- NOTE | 2020-11-13 06:20 | PC.NURSE ---
Lending Consultant Note-Patient has slept throughout the night, oriented x3 when roused for care, neb tx given at 0230 per request, denied chest pain or pressure, SR with multi-focal PVCs, SpO2 >94% on RA, LS diminished with intermittent audible wheezes. BP 90s-109/50s-60s MAP >65, UOP 160ml via Davis. AM Troponin 0.078. The above information reported to HAND SPRING REPAIRER, CMP ordered.
[2020-11-13 06:29] LABS: Alanine Aminotransferase 42 IU/L (<50); Albumin 3.3 g/dL (3.5-5.0); Albumin Globulin Ratio 1.1 (1.0-2.8); Alkaline Phosphatase 41 U/L (38-126); Aspartate Aminotransferase 50 IU/L (17-59); Bilirubin Total 0.5 mg/dL (0.2-1.3); Blood Urea Nitrogen 27 mg/dL (9-20); Calcium 8.8 mg/dL (8.4-10.2); Carbon Dioxide 33 mmol/L (22-32); Chloride 100 mmol/L (98-107); Estimated Glomerular Filt Rate 46.1 mL/min (>60); Globulin 3.1 g/dL (1.7-4.1); Glucose 108 mg/dL (80-110); HEMOLYSIS 34 (0-50); Potassium 3.2 mmol/L (3.4-5.1); Sodium 138 mmol/L (137-145); Total Protein 6.4 g/dL (6.3-8.2)
[2020-11-13] MEDS: BUDESONIDE 0.5 MG/2 ML NEB INH ×2 (07:30→19:49)
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
[2020-11-13] MEDS: lisinopriL 20 MG TABLET PO ×2 (08:47→21:08)
[2020-11-13] MEDS: SERTRALINE 50 MG TABLET 150 MG PO (08:48)
[2020-11-13] MEDS: QUETIAPINE 25 MG TABLET 75 MG PO ×2 (08:49→21:09)
[2020-11-13] MEDS: TAMSULOSIN 0.4 MG CAPSULE PO (08:49)
[2020-11-13] MEDS: OXYCODONE/ACETAMINOPHEN 5/325 TABLET 2 TAB PO ×2 (08:49→21:08)
[2020-11-13] MEDS: CLOPIDOGREL 75 MG TABLET PO (08:50)
[2020-11-13] MEDS: POTASSIUM CHLORIDE 10 MEQ TAB PO ×2 (08:50→17:04)
[2020-11-13] MEDS: cloNIDine 0.1 MG TABLET 0.3 MG PO ×2 (08:50→21:08)
[2020-11-13] MEDS: APIXABAN 5 MG TABLET PO ×2 (08:51→21:08)
[2020-11-13] MEDS: FINASTERIDE 5 MG TABLET PO (08:51)
[2020-11-13] MEDS: ISOSORBIDE MONONITRATE ER 30 MG TABLET PO (08:51)
[2020-11-13] MEDS: PANTOPRAZOLE DR 40 MG TABLET PO (08:52)
[2020-11-13] MEDS: clonazePAM 0.5 MG TABLET PO ×2 (08:52→21:08)
[2020-11-13] MEDS: carvediloL 12.5 MG TABLET PO ×2 (08:52→21:08)
--- NOTE | 2020-11-13 13:14 | PC.NURSE ---
PT REPORTS CHEST/NECK PAIN ( CHRONIC ) AND NSR JPER TELE- AM MEDS TO INCLUDE A PERCOCET HAVE BEEN EFFECTIVE - PT HAS MAINTAINED BEDREST AWAITING PT EVAL- LUNGS DIM BUT MOSTLY CLEAR CENTRAL LINE TO RIGHT UPPER CHEST AND SCD'S IN PLACE
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
[2020-11-13] MEDS: PRAZOSIN HCL 5 MG CAPSULE PO (21:07)
[2020-11-13] MEDS: GABAPENTIN 300 MG CAPSULE PO (21:07)
[2020-11-14] VITALS (8 sets, daily range): BP systolic 108–131; BP diastolic 61–82; PULSE 62–71; RESP 15–18; TEMP 36.3–36.6; O2SAT 96–99
[2020-11-14 05:33] LABS: Alanine Aminotransferase 40 IU/L (<50); Albumin 3.2 g/dL (3.5-5.0); Albumin Globulin Ratio 1.1 (1.0-2.8); Alkaline Phosphatase 47 U/L (38-126); Aspartate Aminotransferase 43 IU/L (17-59); BUN Creatinine Ratio 24.6 (6-22); Bilirubin Total 0.3 mg/dL (0.2-1.3); Blood Urea Nitrogen 28 mg/dL (9-20); Calcium 9.1 mg/dL (8.4-10.2); Carbon Dioxide 32 mmol/L (22-32); Chloride 102 mmol/L (98-107); Estimated Glomerular Filt Rate > 60.0 mL/min (>60); Globulin 2.9 g/dL (1.7-4.1); Glucose 117 mg/dL (80-110); HEMOLYSIS < 15 (0-50); Potassium 3.5 mmol/L (3.4-5.1); Sodium 137 mmol/L (137-145); Total Protein 6.1 g/dL (6.3-8.2)
[2020-11-14] MEDS: BUDESONIDE 0.5 MG/2 ML NEB INH (07:25)
[2020-11-14] MEDS: ALBUTEROL 2.5 MG/3 ML NEB (ADULT) INH ×3 (07:25→14:54)
[2020-11-14] MEDS: OXYCODONE/ACETAMINOPHEN 5/325 TABLET 2 TAB PO (11:04)
[2020-11-14] MEDS: QUETIAPINE 25 MG TABLET 75 MG PO (11:05)
[2020-11-14] MEDS: PANTOPRAZOLE DR 40 MG TABLET PO (11:06)
[2020-11-14] MEDS: clonazePAM 0.5 MG TABLET PO (11:06)
[2020-11-14] MEDS: TAMSULOSIN 0.4 MG CAPSULE PO (11:06)
[2020-11-14] MEDS: CLOPIDOGREL 75 MG TABLET PO (11:06)
[2020-11-14] MEDS: lisinopriL 20 MG TABLET PO (11:07)
[2020-11-14] MEDS: cloNIDine 0.1 MG TABLET 0.3 MG PO (11:07)
[2020-11-14] MEDS: SERTRALINE 50 MG TABLET 150 MG PO (11:09)
[2020-11-14] MEDS: APIXABAN 5 MG TABLET PO (11:09)
[2020-11-14] MEDS: ISOSORBIDE MONONITRATE ER 30 MG TABLET PO (11:10)
[2020-11-14] MEDS: SODIUM CHLORIDE 0.9% FLUSH 10 ML IV (11:11)
--- NOTE | 2020-11-14 11:27 | RT ---
Patient given a full e-cylinder oxygen tank from [place] his current oxygen provider for discharge. Rt called [facility] and spoke to her about following up with patient on his cell phone.
--- NOTE | 2020-11-14 12:15 | PT.IPTN ---
Current Diagnoses Hypertensive urgency (11/12/20) Physical Therapy Treatment Note M2 PT-IP Current Condition Start: 11/13/20 15:09 Freq: Status: Active Protocol: Document 11/14/20 12:04 MA (Rec: 11/14/20 12:49 MA [id number]) Physical Therapy Current Condition Current Condition Evaluation Date 11/13/20 Treatment Diagnosis Weakness Onset Date Acute on chronic, many medical co-morbidities Precautions Other Precautions Fall risk, Tele M3 PT-IP Subjective Start: 11/13/20 15:09 Freq: Status: Active Protocol: Document 11/14/20 12:04 MA (Rec: 11/14/20 12:49 MA [id number]) Subjective Physical Therapy Visit Type Type Treatment Note Visit Start Time 11:35 Visit Stop Time 12:00 Total Visit Minutes 32 Notes Split treatment 11:35-12:00 12:15-12:22 Number of FINANCIAL BUSINESS ANALYST Visits 1 Physical Therapy Visit Comments Patient Comments Pt is agreeable to PT. He states he uses his walker more than his cane but left his rollator at [facility] because it did not fit in his car. Therapy Pain Assessment Pain When Pain Assessed During Mobility Pain Present Pain Present Pain Reported Location Low Back Pain Behaviors Facial Grimacing Pain Management Techniques Re-positioning M4 PT-IP Mobility and Gait Start: 11/13/20 15:09 Freq: Status: Active Protocol: Document 11/14/20 12:04 MA (Rec: 11/14/20 12:49 MA [id number]) PT-Bed Mobility Assessment Supine to Sit Supine to Sit Standby Assistance Scooting Scooting to Edge of Bed Standby Assistance PT-Transfer Assessment Sit to and From Stand Sit to and from Stand Standby Assistance Equipment Transfer Assistive Device Gait Belt,Front Wheeled Walker Orthotic/Prosthetic Devices or Brace: No Transfers Transfer Destination Bed,Chair Transfer Technique Stand Step Pivot Transfer Ability Level of Assist Standby Assistance Comments Mobility Comments Pt is SBA for all transfers. He is able to complete 136 feet with gait belt and FWW SBA before returning to sit on bed for break due to LBP. Pt is then able to complete 75 ft with gait belt and SPC, CGA with heavy lean to R side due to prior stroke. Gait Assessment Gait Gait Assistance Required: Standby Assistance,Contact Guard Assist,1 Person Assist Distance (Feet) 211 Able to Maintain Weight Bearing Status Yes During Gait Assistive Devices Assistive Device Gait Belt Orthotic/Prosthetic Devices or Brace: No Gait Deviations General Gait Pattern Decreased Stride Length, Decreased Feet Clearance, Lateral Trunk Lean,Narrow Based Gait Factors Limiting Gait Function Factors Limiting Gait Function Decreased Sensation,Poor Balance,Poor Safety Awareness Comments Gait Comments See mobility section above. Dispensed FWW for home due to pt unsafe with cane. PT-Balance Assessment Sitting Balance and Reactions Static Sitting Balance Ability Good Dynamic Sitting Balance Ability Good Standing Balance and Reactions Static Standing Balance Ability Good Dynamic Standing Balance Ability Fair M5 PT-IP Objective Assessments Start: 11/13/20 15:09 Freq: Status: Active Protocol: Document 11/13/20 15:29 MB (Rec: 11/13/20 16:20 MB [id number]) Orientation Orientation/Cognition Level of Alertness Alert Orientation Name,Age,Birthday,Month,Date, Year,Day of Week,Place, Situation Language Function Ability No Deficits Noted Safety Awareness Understands Safety Issues Memory Description No Deficits Noted Comments Pt does have some questions about the surgery he is supposed to have this week and does appear to have decreased insight about that. Gross Range of Motion Upper Extremity ROM Assessment Within Functional Limits Lower Extremity ROM Assessment Within Functional Limits Strength Upper Extremity Strength Assessment Within Functional Limits Comments Strength Comments LE MMT deferred this date in setting of reported vascular changes M6 PT-IP Treatment Start: 11/13/20 15:09 Freq: Status: Active Protocol: Document 11/14/20 12:04 MA (Rec: 11/14/20 12:49 MA [id number]) Physical Therapy Treatment Education Education Provided Safety Equipment Issued Equipment Type and Company FWW, PAC MED Other Treatments Other Treatment Performed Adjusted pt's dispensed walker to correct height. Discussed importance of using walker vs cane for balance. M7 PT-IP Assessment and Plan Start: 11/13/20 15:09 Freq: Status: Active Protocol: Document 11/14/20 12:04 MA (Rec: 11/14/20 12:49 MA [id number]) PT Summary Assessment and Plan Potential Rehabilitation Potential Fair Status of Condition at Evaluation Evolving Summary Impairments Pain,Strength,Sensation, Activity Tolerance Assessment Summary Adriel was able to complete gait training with gait belt and FWW today SBA. He is CGA with cane due to heavy lateral lean R. FINANCIAL BUSINESS ANALYST dispensed FWW due to safety concerns regarding d/c with cane. Pt states he has rollator he left at hotel because he could not fit it in his car. FINANCIAL BUSINESS ANALYST unable to confirm pt has access to belongings left at [facility] at this time and encourages pt to use walker vs. cane upon d/c for safey. Pt shows good understanding and walker is set to correct height and left in room. Nurses informed of pt's mobility status. Goals Bed Mobility Goal Independent Transfer Goal Independent Gait Goal Independent,Cane Gait Distance 100 Days to Meet Goals 5 Frequency of Treatment Frequency Of Treatment Once a Day Treatment Plan Physical Therapy Treatment Plan Bed Mobility Training,Transfer Training,Gait Training, Therapeutic Exercise,Balance Retraining,Neuromuscular Re-ed Other Recommendations and Next Treatment Increase gait distance Focus Precautions Other Precautions Tele Recommendations To Nursing Amount of Assist Needed 1 Person Assist Discharge Recommendations PT Discharge Recommendations Home Other Discharge Recommendations If case management has resource information about housing for veterans and a social work specialist that can follow his case at d/c, pt may benefit from these Equipment Needed for Home Before FWW dispensed for pt to d/c Discharge home with Transportation Needs at Discharge Private Vehicle
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
--- NOTE | 2020-11-14 15:14 | PC.NURSE ---
AM shift Pt is d/c pending awaiting social work taxi voucher and motel for [employer].
--- NOTE | 2020-11-14 16:13 | CM.DPC ---
DCP Continued: Physical therapy issued a FWW and cleared patient to discharge home. Chaplain Izaguirre has called and coordinated with the [employer] to allow patient to get into his car to collect his clothing and other supplies needed for the night. Secured Taxi transportation with via [employer]. Nursing provided with the voucher. Additional resources provided to patient was the number for the National call center for homeless Veterans . PLAN: Patient is D/C from hospital per nursing he was able to pay for his car to get out of [facility] and chose to drive from hospital vs using the Taxi voucher. RON Helms MSW Student
--- NOTE | 2020-11-14 16:22 | PC.NURSE ---
Addendum entered by Ivette Brunson R.N. 11/14/20 17:39: When brought downstairs it was discovered that his car had been towed. Security looked into the matter and it turns out that the patient's car was repossessed. A cab voucher was given for the patient to be transported [facility] where he has a room paid for tonight. Original Note: Patient's discharge done by gerard MILLIGAN. Patient is sitting in his room fully dressed waiting for tow truck to come unlock his car. Patient says he had enough money to pay the tow truck so he is going to drive himself- case management notified, taxi voucher returned. Patient has no further questions or concerns and is eager to leave. Tele off, IV removed by gerard MILLIGAN.
== END 2020-11-14 16:15 | disposition home or self-care (01) ==
LOC: ED 07:34 → ICU 17:51 → AC 11-14 15:57
PROVIDERS: Emergency Medicine; Nurse Practitioner Family; Admitting Provider Internal Medicine; Emergency Provider Emergency Medicine; Referring Provider Nurse Practitioner; Visit Provider Internal Medicine
DX: I16.0 Hypertensive urgency (principal); G93.41 Metabolic encephalopathy; I50.22 Chronic systolic (congestive) heart failure; F14.90 Cocaine use, unspecified, uncomplicated; R07.9 Chest pain, unspecified; I11.0 Hypertensive heart disease with heart failure; I48.0 Paroxysmal atrial fibrillation; Z79.01 Long term (current) use of anticoagulants; I25.10 Atherosclerotic heart disease of native coronary artery without angina pectoris; Z95.5 Presence of coronary angioplasty implant and graft; Z87.891 Personal history of nicotine dependence; J45.909 Unspecified asthma, uncomplicated; J44.9 Chronic obstructive pulmonary disease, unspecified; I73.9 Peripheral vascular disease, unspecified; Z59.0 Homelessness; Z20.822 Contact with and (suspected) exposure to COVID-19; R06.02 Shortness of breath; I25.2 Old myocardial infarction; Z95.0 Presence of cardiac pacemaker
CPT/HCPCS: 36415; 36592; 51798; 71045; 80053; 80305; 80320; 80329; 81001; 82140; 82550; 82553; 83605; 83735; 83880; 84145; 84146; 84443; 84484; 85025; 85610; 85730; 87040; 87635; 87797; 93005; 94640; 94760; 96361; 96365; 96366; 96368; 96375; 96376; 97116; 97161; 99285; 99291; C9803; G0378; G0480; J1170; J1642; J1644; J1940; J7613

== ENCOUNTER 2020-11-15 10:44 | Emergency (ER) | payer MEDICARE, MEDICAID, SELFPAY ==
[2020-11-15] VITALS (24 sets, daily range): BP systolic 159–237; BP diastolic 80–126; PULSE 67–88; RESP 16–33; TEMP 36.7; O2SAT 95–100
--- NOTE | 2020-11-15 10:50 | DI.RAD.S_ITS ---
PROCEDURE: XR CHEST 1V INDICATIONS: chest pain TECHNIQUE: One view of the chest was acquired. COMPARISON: [facility], CR, XR CHEST 1V, 11/12/2020, 7:35. FINDINGS: Surgical changes and devices: Pacemaker is unchanged. Lungs and pleura: Lungs are clear. No pleural effusions or pneumothorax. Mediastinum: Mediastinal contours appear normal. Heart size is enlarged. Bones and chest wall: No suspicious bony lesions. Overlying soft tissues appear unremarkable. IMPRESSION: No acute pulmonary process. Dictated by: Shannan Wooten M.D. on 11/15/2020 at 11:28 Approved by: Shannan Wooten M.D. on 11/15/2020 at 11:28
--- NOTE | 2020-11-15 10:50 | DI.CT.S_ITS ---
PROCEDURE: CT HEAD/BRAIN WO CON INDICATIONS: weakness right side, several months, hypertension TECHNIQUE: Noncontrast 4.5 mm thick angled axial sections acquired from the foramen magnum to the vertex, with coronal and sagittal reformats. For radiation dose reduction, the following was used: automated exposure control, adjustment of mA and/or kV according to patient size. COMPARISON: [facility], CT, CT BRAIN WO CON, 11/05/2016, 16:56. FINDINGS: Image quality: Excellent. CSF spaces: Basal cisterns are patent. No extra-axial fluid collections. The ventricles are symmetric in size and shape. Brain: No intracranial bleeds or masses. There is cerebral volume loss for age, with resultant ventricular and sulcal prominence. There are periventricular and deep white matter chronic small vessel ischemic changes. There is intracranial internal carotid artery atherosclerosis. Skull and face: Calvarium and visualized facial bones appear intact, without suspicious lesions. Sinuses: Visualized sinuses and mastoids are clear. IMPRESSION: 1. No acute intracranial process. 2. Moderate atrophy and chronic microvascular ischemic changes. The above findings are concordant with preliminary report. Dictated by: Shannan Wooten M.D. on 11/15/2020 at 11:21 Approved by: Shannan Wooten M.D. on 11/15/2020 at 11:23
--- NOTE | 2020-11-15 11:00 | ED_ITS ---
HPI - Chest Pain General Chief Complaint: Chest Pain Stated Complaint: CP Time Seen by Provider: 11/15/20 10:50 Source: EMS Mode of arrival: EMS Limitations: no limitations History of Present Illness HPI narrative: This a 70-year-old male who comes to emergency department with complaint of chest pain. Patient has a history of being former smoker with a history of CA, coronary artery disease, CHF and pacemaker who was seen in the department for altered mental status and hypertensive emergency, patient had central line placed secondary to difficulty of access and a nicardipine drip was started patient was transitioned to oral hypertensive and admitted for observation. Patient does have a history of substance abuse and had difficult venous access and was positive for cocaine on his last ER visit 3 days ago. Patient states that his vehicle where his medications are kept was repossessed and he does not have have them available and he has not been able to take his antihypertensives and is quite hypertensive here in the department. Patient states he is currently homeless. He was given a voucher by social Work and was staying at the local hotel. Patient follows with cardiology at [facility]. Related Data Home Medications Medication Instructions Recorded Confirmed acetylcysteine 600 mg capsule 600 mg PO BID 11/12/20 11/12/20 albuterol sulfate 2.5 mg INHALATION Q6H PRN 11/12/20 11/12/20 albuterol sulfate 90 mcg/actuation 2 inh INHALATION Q6H PRN 11/12/20 11/12/20 breath activated powder inhaler apixaban 5 mg tablet (Eliquis) 5 mg PO BID 11/12/20 11/12/20 carvedilol 12.5 mg tablet 12.5 mg PO BID 11/12/20 11/12/20 clonazepam 0.5 mg tablet 0.5 mg PO BID 11/12/20 11/12/20 clonidine HCl 0.3 mg tablet 0.3 mg PO BID 11/12/20 11/12/20 clopidogrel 75 mg tablet 75 mg PO DAILY 11/12/20 11/12/20 finasteride 5 mg tablet 5 mg PO DAILY 11/12/20 11/12/20 gabapentin 300 mg capsule 300 mg PO BEDTIME 11/12/20 11/12/20 isosorbide mononitrate 30 mg 30 mg PO DAILY 11/12/20 11/12/20 tablet,extended release 24 hr lisinopril 20 mg tablet 20 mg PO BID 11/12/20 11/12/20 nitroglycerin 0.4 mg sublingual 0.4 mg SUBLINGUAL PRN PRN 11/12/20 11/12/20 tablet omeprazole 40 mg capsule,delayed 40 mg PO DAILY 11/12/20 11/12/20 release oxycodone-acetaminophen 5 mg-325 1 tab PO Q4H PRN 11/12/20 11/12/20 mg tablet prazosin 5 mg capsule 5 mg PO BEDTIME 11/12/20 11/12/20 promethazine 12.5 mg tablet 12.5 mg PO Q6H PRN 11/12/20 11/12/20 quetiapine 150 mg tablet,extended 150 mg PO BEDTIME 11/12/20 11/12/20 release 24 hr (Seroquel XR) sertraline 100 mg tablet 150 mg PO DAILY 11/12/20 11/12/20 spironolactone 50 mg tablet 50 mg PO DAILY 11/12/20 11/12/20 tamsulosin 0.4 mg capsule 0.4 mg PO DAILY 11/12/20 11/12/20 torsemide 20 mg tablet 20 mg PO DAILY 11/12/20 11/12/20 Previous Rx's Medication Instructions Recorded albuterol sulfate 2.5 mg INHALATION Q4H PRN #15 ml 11/15/20 apixaban 5 mg tablet (Eliquis) 5 mg PO BID #60 tab 11/15/20 carvedilol 12.5 mg tablet 12.5 mg PO BID #60 tab 11/15/20 clonidine HCl 0.3 mg tablet 0.3 mg PO BID #60 tab 11/15/20 clopidogrel 75 mg tablet 75 mg PO DAILY #30 tab 11/15/20 finasteride 5 mg tablet 5 mg PO DAILY #30 tab 11/15/20 gabapentin 300 mg capsule 300 mg PO BEDTIME #30 cap 11/15/20 isosorbide mononitrate 30 mg 30 mg PO DAILY #30 tab 11/15/20 tablet,extended release 24 hr lisinopril 20 mg tablet 20 mg PO BID #60 tab 11/15/20 nitroglycerin 0.4 mg sublingual 0.4 mg SUBLINGUAL Q5-15M PRN #10 11/15/20 tablet tab prazosin 5 mg capsule 5 mg PO BEDTIME #30 cap 11/15/20 quetiapine 150 mg tablet,extended 150 mg PO BEDTIME #30 tab 11/15/20 release 24 hr sertraline 50 mg tablet 50 mg PO DAILY #30 tab 11/15/20 spironolactone 50 mg tablet 50 mg PO DAILY #30 tab 11/15/20 torsemide 20 mg tablet 20 mg PO DAILY #30 tab 11/15/20 Allergies Allergy/AdvReac Type Severity Reaction Status Date / Time morphine Allergy Verified 11/12/20 08:27 Review of Systems Review of Systems ROS Unobtainable: All systems reviewed & are unremarkable except as noted in HPI and below Patient History Social History household members: none Smoking Status: Never smoker Smoking Status: Never smoker alcohol intake frequency: a few times a month Substance Use Type: crack/cocaine Exam Narrative Exam Narrative: GEN: well nourished, well appearing male, alert and oriented x 3, patient appears to be in mild distress. HEENT: Atraumatic, pupils are equal round reactive to light, extraocular movements are intact, nares are clear, throat is clear without any exudates, erythema, tonsillar enlargement or uvular deviation HEART: Regular rate and rhythm without murmur, clicks, rubs. LUNGS:Lungs clear to auscultation, no wheezes, rales, crackles, chest moves symmetrically ABD:bowel sounds normal, soft, non-tender, no guarding, rebound, rigidity, no masses noted, no hepatosplenomegaly :No CVA tenderness MSCL: Non-tender, no muscle atrophy, muscles strength 5/5 upper and lower extremities, full range of motion NEURO:CN 2-12 intact, sensation normal SKIN: No rash or other skin changes. Initial Vital Signs Initial Vital Signs: Vital Signs Temperature 98.1 F 11/15/20 10:44 Pulse Rate 78 11/15/20 10:44 Respiratory Rate 28 H 11/15/20 10:44 Blood Pressure 236/123 H 11/15/20 10:44 Pulse Oximetry 95 11/15/20 10:44 Course Orders Ordered: Discontinued Medications Amlodipine Besylate (Amlodipine 5 Mg Tablet) 5 mg PO NOW ONE Stop: 11/15/20 10:53 Last Admin: 11/15/20 11:22 Dose: 5 mg Documented by: ORLANDO Apixaban (Apixaban 5 Mg Tablet) 5 mg PO NOW ONE Stop: 11/15/20 14:46 Last Admin: 11/15/20 15:04 Dose: 5 mg Documented by: ROMY Aspirin (Aspirin 81 Mg Chew Tab) 324 mg PO NOW ONE Stop: 11/15/20 14:27 Last Admin: 11/15/20 15:04 Dose: 324 mg Documented by: ROMY Carvedilol (Carvedilol 12.5 Mg Tablet) 12.5 mg PO NOW ONE Stop: 11/15/20 10:53 Last Admin: 11/15/20 11:23 Dose: 12.5 mg Documented by: ORLANDO Clonazepam (Clonazepam 0.5 Mg Tablet) 0.5 mg PO NOW ONE Stop: 11/15/20 14:47 Last Admin: 11/15/20 15:03 Dose: 0.5 mg Documented by: ROMY Clonidine HCl (Clonidine 0.1 Mg Tablet) 0.3 mg PO NOW ONE Stop: 11/15/20 16:00 Last Admin: 11/15/20 16:27 Dose: 0.3 mg Documented by: ROMY Clopidogrel Bisulfate (Clopidogrel 75 Mg Tablet) 75 mg PO NOW ONE Stop: 11/15/20 16:01 Last Admin: 11/15/20 16:27 Dose: 75 mg Documented by: ROMY Furosemide (Furosemide 40 Mg/4 Ml Vial) 40 mg IV NOW ONE Stop: 11/15/20 11:02 Last Admin: 11/15/20 15:15 Dose: Not Given Documented by: OLIVER Furosemide (Furosemide 40 Mg Tablet) 40 mg PO NOW ONE Stop: 11/15/20 15:17 Last Admin: 11/15/20 15:21 Dose: 40 mg Documented by: ROMY Hydromorphone HCl (Hydromorphone 0.5 Mg Inj) 0.5 mg IV NOW ONE Stop: 11/15/20 14:46 Last Admin: 11/15/20 15:50 Dose: 0.5 mg Documented by: ROMY Sodium Chloride (Normal Saline 0.9%) 1,000 mls @ 150 mls/hr IV CONT TRINA Last Infusion: 11/15/20 18:20 Dose: 0 mls/hr Documented by: Infusion: 11/15/20 15:51 Dose: 150 mls/hr Documented by: Infusion: 11/15/20 15:25 Dose: 0 mls/hr Documented by: Admin: 11/15/20 15:05 Dose: 150 mls/hr Documented by: ROMY Isosorbide Mononitrate (Isosorbide Mononitrate Er 30 Mg Tablet) 30 mg PO NOW ONE Stop: 11/15/20 10:53 Last Admin: 11/15/20 11:22 Dose: 30 mg Documented by: ORLANDO Lisinopril (Lisinopril 20 Mg Tablet) 20 mg PO NOW ONE Stop: 11/15/20 10:53 Last Admin: 11/15/20 11:23 Dose: 20 mg Documented by: ORLANDO Nitroglycerin (Nitroglycerin 0.4 Mg Sl Tab) 0.4 mg SL [id number] PRN PRN Reason: chest pain Last Admin: 11/15/20 12:30 Dose: 0.4 mg Documented by: Admin: 11/15/20 11:35 Dose: 0.4 mg Documented by: Admin: 11/15/20 11:23 Dose: 0.4 mg Documented by: ORLANDO Spironolactone (Spironolactone 25 Mg Tablet) 50 mg PO NOW ONE Stop: 11/15/20 16:01 Reevaluation(s) Reevaluation #1: Patient BP improved here in the department with patient's home medications which he states he has not taken since discharge. Consultations Consultation #1: Dr. Taylor, patient troponin trending downwards and BP is improving in department with no new EKG changes. Plan to restart patient's home medications and they are happy to follow up with patient. Vital Signs Vital signs: Vital Signs - 8 hr 11/15/20 10:44 11/15/20 11:07 11/15/20 11:19 Temperature 98.1 F Pulse Rate 78 78 69 Respiratory Rate 28 H 33 H 19 Blood Pressure 236/123 H 204/106 H Pulse Oximetry 95 100 100 11/15/20 11:30 11/15/20 11:31 11/15/20 11:34 Temperature Pulse Rate 88 83 84 Respiratory Rate 22 Blood Pressure 237/114 H 172/86 H Pulse Oximetry 100 100 99 11/15/20 11:35 11/15/20 11:56 11/15/20 12:00 Temperature Pulse Rate 87 83 79 Respiratory Rate Blood Pressure 172/86 H 165/126 H Pulse Oximetry 100 100 11/15/20 12:01 11/15/20 12:30 11/15/20 12:31 Temperature Pulse Rate 77 70 69 Respiratory Rate Blood Pressure 182/94 H 178/91 H Pulse Oximetry 100 100 100 11/15/20 13:00 11/15/20 13:30 11/15/20 13:47 Temperature Pulse Rate 67 72 75 Respiratory Rate Blood Pressure 175/90 H 184/102 H Pulse Oximetry 100 100 100 11/15/20 14:00 11/15/20 14:30 11/15/20 15:00 Temperature Pulse Rate 71 71 73 Respiratory Rate Blood Pressure 163/87 H 168/85 H 190/93 H Pulse Oximetry 100 100 100 11/15/20 15:30 Temperature Pulse Rate 71 Respiratory Rate Blood Pressure 184/90 H Pulse Oximetry 100 MDM - Chest Pain Lab Data Result diagrams: 11/15/20 13:40 11/15/20 13:40 Labs: Lab Results 11/15/20 11/15/20 11/15/20 Range/Units 13:40 13:40 13:40 WBC 7.4 (4.5-11.0) X10^3/uL RBC 4.55 (4.5-5.9) X10^6/uL Hgb 13.7 (13.5-17.5) g/dL Hct 41.5 (41-53) % MCV 91.1 (80-100) fL MCH 30.2 (26-34) PG MCHC 33.1 (30-36) % RDW 15.4 H (11.6-14.8) % Plt Count 177 (150-400) X10^3/uL Neut % (Auto) 67.3 (50-75) % Lymph % (Auto) 13.9 L (25-40) % Barry % (Auto) 12.0 (3-14) % Eos % (Auto) 5.6 H (2-4) % Baso % (Auto) 1.2 (0-2) % Neut # (Auto) 5000 (0246-3567) /uL Lymph # (Auto) 1000 L (6220-0839) /uL Barry # (Auto) 900 (0-900) /uL Eos # (Auto) 400 (0-450) /uL Baso # (Auto) 100 (0-100) /uL PT 12.9 H (10.1-12.7) SECONDS INR 1.1 (0.9-1.3) APTT 39 H D (26.4-36.2) SECONDS Sodium 139 (137-145) mmol/L Potassium 4.0 (3.4-5.1) mmol/L Chloride 101 (98-107) mmol/L Carbon Dioxide 34 H (22-32) mmol/L BUN 18 (9-20) mg/dL Creatinine 0.79 (0.66-1.25) mg/dL Estimated GFR > 60.0 (>60) mL/min BUN/Creatinine Ratio 22.8 H (6-22) Glucose 95 (80-110) mg/dL Calcium 9.7 (8.4-10.2) mg/dL Total Bilirubin 0.8 (0.2-1.3) mg/dL AST 60 H (17-59) IU/L ALT 56 H (<50) IU/L Alkaline Phosphatase 61 (38-126) U/L Total Creatine Kinase 78 D (55-170) U/L CK-MB (CK-2) TNP CK-MB (CK-2) Rel Index TNP Troponin I 0.038 H (0.01-0.034) ng/mL NT-Pro-B Natriuret Pep 4210 H (<125) pg/mL Total Protein 7.8 (6.3-8.2) g/dL Albumin 4.0 (3.5-5.0) g/dL Globulin 3.8 (1.7-4.1) g/dL Albumin/Globulin Ratio 1.1 (1.0-2.8) Lipase 25 (23-300) U/L SARS-CoV-2 (PCR) (Negative) 11/15/20 Range/Units 13:45 WBC (4.5-11.0) X10^3/uL RBC (4.5-5.9) X10^6/uL Hgb (13.5-17.5) g/dL Hct (41-53) % MCV (80-100) fL MCH (26-34) PG MCHC (30-36) % RDW (11.6-14.8) % Plt Count (150-400) X10^3/uL Neut % (Auto) (50-75) % Lymph % (Auto) (25-40) % Barry % (Auto) (3-14) % Eos % (Auto) (2-4) % Baso % (Auto) (0-2) % Neut # (Auto) (7859-5164) /uL Lymph # (Auto) (6651-8999) /uL Barry # (Auto) (0-900) /uL Eos # (Auto) (0-450) /uL Baso # (Auto) (0-100) /uL PT (10.1-12.7) SECONDS INR (0.9-1.3) APTT (26.4-36.2) SECONDS Sodium (137-145) mmol/L Potassium (3.4-5.1) mmol/L Chloride (98-107) mmol/L Carbon Dioxide (22-32) mmol/L BUN (9-20) mg/dL Creatinine (0.66-1.25) mg/dL Estimated GFR (>60) mL/min BUN/Creatinine Ratio (6-22) Glucose (80-110) mg/dL Calcium (8.4-10.2) mg/dL Total Bilirubin (0.2-1.3) mg/dL AST (17-59) IU/L ALT (<50) IU/L Alkaline Phosphatase (38-126) U/L Total Creatine Kinase (55-170) U/L CK-MB (CK-2) CK-MB (CK-2) Rel Index Troponin I (0.01-0.034) ng/mL NT-Pro-B Natriuret Pep (<125) pg/mL Total Protein (6.3-8.2) g/dL Albumin (3.5-5.0) g/dL Globulin (1.7-4.1) g/dL Albumin/Globulin Ratio (1.0-2.8) Lipase (23-300) U/L SARS-CoV-2 (PCR) Negative (Negative) Imaging Data Chest x-ray: Radiologist's Impression: Adriel De Oliveira 70 M [address] [id number] ReportSigned Patient: Adriel De OliveirasMR#: [id number]: 1950Acct:[id number]/Sex: 70 / MDate of Service: 11/15/20Lo: EDAccession Number: [id number] Procedure: XR chest 1V Ordering Provider: Sandra Vaughan D.O. PROCEDURE: XR CHEST 1V INDICATIONS: chest pain TECHNIQUE: One view of the chest was acquired. COMPARISON: [facility], CR, XR CHEST 1V, 11/12/2020, 7:35. FINDINGS: Surgical changes and devices: Pacemaker is unchanged. Lungs and pleura: Lungs are clear. No pleural effusions or pneumothorax. Mediastinum: Mediastinal contours appear normal. Heart size is enlarged. Bones and chest wall: No suspicious bony lesions. Overlying soft tissues appear unremarkable. IMPRESSION: No acute pulmonary process. Dictated by: Shannan Wooten M.D. on 11/15/2020 at 11:28 Approved by: Shannan Wooten M.D. on 11/15/2020 at 11:28 CT scan - head: Radiologist's Impression: Adriel De Oliveira 70 M [address] [id number] Scan ReportSigned Patient: Adriel De OliveiraR#: [id number]: 1950Acct:[id number]/Sex: 70 / MDate of Service: 11/15/20Loc: EDAccession Number: [id number] Procedure: CT head/brain wo con Ordering Provider: Sandra Vaughan D.O. PROCEDURE: CT HEAD/BRAIN WO CON INDICATIONS: weakness right side, several months, hypertension TECHNIQUE: Noncontrast 4.5 mm thick angled axial sections acquired from the foramen magnum to the vertex, with coronal and sagittal reformats. For radiation dose reduction, the following was used: automated exposure control, adjustment of mA and/or kV according to patient size. COMPARISON: [facility], CT, CT BRAIN WO CON, 11/05/2016, 16:56. FINDINGS: Image quality: Excellent. CSF spaces: Basal cisterns are patent. No extra-axial fluid collections. The ventricles are symmetric in size and shape. Brain: No intracranial bleeds or masses. There is cerebral volume loss for age, with resultant ventricular and sulcal prominence. There are periventricular and deep white matter chronic small vessel ischemic changes. There is intracranial internal carotid artery atherosclerosis. Skull and face: Calvarium and visualized facial bones appear intact, without suspicious lesions. Sinuses: Visualized sinuses and mastoids are clear. IMPRESSION: 1. No acute intracranial process. 2. Moderate atrophy and chronic microvascular ischemic changes. The above findings are concordant with preliminary report. Dictated by: Shannan Wooten M.D. on 11/15/2020 at 11:21 Approved by: Shannan Wooten M.D. on 11/15/2020 at 11:23 ECG Data Interpretation: Sinus rhythm rate of 75 NE 170 QRS of 98 QTC of 415. Patient has ST changes in lateral leads. Elevation in V1 through V4 with depression V5 6. Patient has prior EKG from the 11/12 which appears similar with no acute changes or changing morphology. Patient has other prior EKGs which also appears similar. MDM Narrative Medical decision making narrative: 70-year-old male who comes to emergency department patient returns with chest pain, hypertension with no new EKG changes and downward trending troponin. Patient unable to take his home medications he was given these had his blood pressure began to improve. BNP is also improving here in the department. Patient medications are not accessible to him at this time and after discussion with Cardiology decision is made the patient would be safe to discharge home but will refill his home medications. These were reviewed with patient, prescriptions were sent to local pharmacy. Patient currently does not have a home to live in and social Work was included in conversation to help assist patient with placement for at least the next 24 h ours. Discharge Plan Departure Patient Disposition: Home Clinical Impression: Chest pain Activity Restrictions/Additional Instructions: Please refill your medications and take these regularly. It is important to take your blood pressure medications daily. Prescriptions sent to [facility]. I did speak with your cardiology team. Please contact them to follow up. Your blood pressure today has been improved in comparison to yesterday. Your heart enzyme has also been improved here today in comparison to the last 24 hours and is trending downwards. Return for new or worsening symptoms, lightheadedness or passing out, increasing swelling or your extremities coming worsening pain, shortness of breath, persistent vomiting or other new or concerning symptoms. Prescriptions: New albuterol sulfate 2.5 mg /3 mL (0.083 %) solution for nebulization 2.5 mg inhalation Q4H PRN (Reason: shortness of breath or wheezing) Qty: 15 RF: 0 carvedilol 12.5 mg tablet 12.5 mg PO BID Qty: 60 RF: 0 clonidine HCl 0.3 mg tablet 0.3 mg PO BID Qty: 60 RF: 0 clopidogrel 75 mg tablet 75 mg PO DAILY Qty: 30 RF: 0 Eliquis 5 mg tablet 5 mg PO BID Qty: 60 RF: 0 finasteride 5 mg tablet 5 mg PO DAILY Qty: 30 RF: 0 gabapentin 300 mg capsule 300 mg PO BEDTIME Qty: 30 RF: 0 isosorbide mononitrate 30 mg tablet extended release 24 hr 30 mg PO DAILY Qty: 30 RF: 0 lisinopril 20 mg tablet 20 mg PO BID Qty: 60 RF: 0 nitroglycerin 0.4 mg tablet, sublingual 0.4 mg sublingual Q5-15M PRN (Reason: chest pain) Qty: 10 RF: 0 prazosin 5 mg capsule 5 mg PO BEDTIME Qty: 30 RF: 0 quetiapine 150 mg tablet extended release 24 hr 150 mg PO BEDTIME Qty: 30 RF: 0 spironolactone 50 mg tablet 50 mg PO DAILY Qty: 30 RF: 0 torsemide 20 mg tablet 20 mg PO DAILY Qty: 30 RF: 0 sertraline 50 mg tablet 50 mg PO DAILY Qty: 30 RF: 0 No Action carvedilol 12.5 mg tablet 12.5 mg PO BID RF: 0 torsemide 20 mg tablet 20 mg PO DAILY RF: 0 albuterol sulfate 2.5 mg /3 mL (0.083 %) solution for nebulization 2.5 mg inhalation Q6H PRN (Reason: Wheezing) RF: 0 promethazine 12.5 mg tablet 12.5 mg PO Q6H PRN (Reason: Nausea) RF: 0 lisinopril 20 mg tablet 20 mg PO BID RF: 0 isosorbide mononitrate 30 mg tablet extended release 24 hr 30 mg PO DAILY RF: 0 clonazepam 0.5 mg tablet 0.5 mg PO BID RF: 0 clonidine HCl 0.3 mg tablet 0.3 mg PO BID RF: 0 sertraline 100 mg tablet 150 mg PO DAILY RF: 0 clopidogrel 75 mg tablet 75 mg PO DAILY RF: 0 omeprazole 40 mg capsule,delayed release(DR/EC) 40 mg PO DAILY RF: 0 prazosin 5 mg capsule 5 mg PO BEDTIME RF: 0 oxycodone-acetaminophen 5-325 mg tablet 1 tab PO Q4H PRN (Reason: Pain (Scale Score 1-3)) RF: 0 tamsulosin 0.4 mg capsule 0.4 mg PO DAILY RF: 0 nitroglycerin 0.4 mg tablet, sublingual 0.4 mg sublingual PRN PRN (Reason: Chest Pain) RF: 0 gabapentin 300 mg capsule 300 mg PO BEDTIME RF: 0 finasteride 5 mg Tablet 5 mg PO DAILY RF: 0 spironolactone 50 mg tablet 50 mg PO DAILY RF: 0 acetylcysteine 600 mg Capsule 600 mg PO BID RF: 0 quetiapine [Seroquel XR] 150 mg Tablet Extended Release 24 Hr 150 mg PO BEDTIME RF: 0 Eliquis 5 mg tablet 5 mg PO BID RF: 0 albuterol sulfate 90 mcg/actuation Aerosol Powdr Breath Activated 2 inh INHALATION Q6H PRN (Reason: Wheezing) RF: 0 Referrals: Kriss Morrissey MD [Physician] -
[2020-11-15] MEDS: AMLODIPINE 5 MG TABLET PO (11:22)
[2020-11-15] MEDS: ISOSORBIDE MONONITRATE ER 30 MG TABLET PO (11:22)
[2020-11-15] MEDS: lisinopriL 20 MG TABLET PO (11:23)
[2020-11-15] MEDS: carvediloL 12.5 MG TABLET PO (11:23)
[2020-11-15] MEDS: NITROGLYCERIN 0.4 MG SL TAB SL ×3 (11:23→12:30)
[2020-11-15 13:51] LABS: Add Manual Diff / Slide Review NO; Basophils Absolute Auto 100 /uL (0-100); Basophils Percent Auto 1.2 % (0-2); Eosinophils Absolute Auto 400 /uL (0-450); Eosinophils Percent Auto 5.6 % (2-4); Hematocrit 41.5 % (41-53); Hemoglobin 13.7 g/dL (13.5-17.5); Lymphocytes Absolute Auto 1000 /uL (1100-4500); Lymphocytes Percent Auto 13.9 % (25-40); Mean Corpuscular HGB Conc 33.1 % (30-36); Mean Corpuscular Hemoglobin 30.2 PG (26-34); Mean Corpuscular Volume 91.1 fL (80-100); Monocytes Absolute Auto 900 /uL (0-900); Neutrophils Absolute Auto 5000 /uL (1500-7000); Neutrophils Percent Auto 67.3 % (50-75); Platelet Count 177 X10^3/uL (150-400); Red Blood Cell Count 4.55 X10^6/uL (4.5-5.9); Red Cell Distribution Width 15.4 % (11.6-14.8); White Blood Cell Count 7.4 X10^3/uL (4.5-11.0)
[2020-11-15 13:57] LABS: INR 1.1 (0.9-1.3); Prothrombin Time 12.9 SECONDS (10.1-12.7)
[2020-11-15 14:00] LABS: PTT Partial Thromboplastin Tim 39 SECONDS (26.4-36.2)
[2020-11-15 14:08] LABS: Alanine Aminotransferase 56 IU/L (<50); Albumin Globulin Ratio 1.1 (1.0-2.8); Alkaline Phosphatase 61 U/L (38-126); Aspartate Aminotransferase 60 IU/L (17-59); BUN Creatinine Ratio 22.8 (6-22); Bilirubin Total 0.8 mg/dL (0.2-1.3); Blood Urea Nitrogen 18 mg/dL (9-20); Calcium 9.7 mg/dL (8.4-10.2); Carbon Dioxide 34 mmol/L (22-32); Chloride 101 mmol/L (98-107); Creatine Kinase 78 U/L (55-170); Estimated Glomerular Filt Rate > 60.0 mL/min (>60); Globulin 3.8 g/dL (1.7-4.1); Glucose 95 mg/dL (80-110); HEMOLYSIS 16 (0-50); Lipase 25 U/L (23-300); Sodium 139 mmol/L (137-145); Total Protein 7.8 g/dL (6.3-8.2)
[2020-11-15 14:22] LABS: NT-proBNP (BNP-Adult 18+) 4210 pg/mL (<125); Troponin I 0.038 ng/mL (0.01-0.034)
[2020-11-15 14:48] LABS: COVID19 - ADMIT (NP swab/PCR) Negative (Negative)
[2020-11-15] MEDS: clonazePAM 0.5 MG TABLET PO (15:03)
[2020-11-15] MEDS: APIXABAN 5 MG TABLET PO (15:04)
[2020-11-15] MEDS: ASPIRIN 81 MG CHEW TAB 324 MG PO (15:04)
[2020-11-15] MEDS: SODIUM CHLORIDE 0.9% 1,000 ML 150 ML IV (15:05)
[2020-11-15] MEDS: FUROSEMIDE 40 MG TABLET PO (15:21)
--- NOTE | 2020-11-15 15:30 | CM.SWNOTE ---
Addendum entered by Pam Ball 11/15/20 18:44: [employer] officer calls and reports he has secured a motel room for patient at [facility] via [facility]. BILING[employer] SCHOOL PSYCHOLOGIST informs patient of his motel voucher and patient informs BILINGUAL SCHOOL PSYCHOLOGIST of his depression. Patient states that he has been struggling with depression due to the issues recently such as no housing, car troubles and hospital stays. Patient denies self harm, SI and HI. Patient states he has a MH provider through the [place] but it is via telehealth right now. B[employer] SCHOOL PSYCHOLOGIST provides patient with further MH resources, B[employer]INGUAL SCHOOL PSYCHOLOGIST provides patient with taxi voucher to [facility] and [facility] for prescriptions. Patient asks about his Percocet prescription and states that he is on a pain management contract, relief charge nurse informs patient that he cannot be given rx of Percocet. Plan: Patient d/c to [facility] with Rx and taxi voucher, patient to f[facility]u with [facility] providers for further assistance. RON Gacria Addendum entered by Pam Ball 11/15/20 17:03: BILINGUAL SCHOOL PSYCHOLOGIST receives call from Quan Izaguirre, he reports that his jainism ([facility]) provided patient with motel voucher last evening at [facility] and it was not through [facility]. Dmitriy provides direct line for Tuyet at [facility] (Ph. #[phone] ext [phone]) BILINGUAL SCHOOL PSYCHOLOGIST does not leave because Tyuet left the office at 1700 and she is no longer at the office. BILINGUAL SCHOOL PSYCHOLOGIST calls [employer] dispatch for motel voucher referral though [facility]. RON Garcia Original Note: BILINGUAL S[employer]OL PSYCHOLOGIST Assessment Note BILING[employer] SCHOOL PSYCHOLOGIST receives consult and meets with patient. Patient is 70 y/o male presents to this ED via EMS with concerns of chest pain. Patient was just d/c'd yesterday from ICU and provided voucher for [facility] via referral from Quan Simpson. Patient is currently homeless, patient endorses that he stayed and paid for a room at the [facility] in [place] for the last 8 months prior to November 2020. Patient endorses that he reports concern of chest pain, does not have access to his medication and called 911 and was brought back to this ED. Patient is A/Ox4. Patient reports that his vehicle was towed to this parking lot and now it has been repossessed and he does not know where his vehicle is located or what [employer] relocated his vehicle. Patient endorses that he paid [employer] but the vehicle was repossessed and he now owes $700 to the [employer] because he owes two car payments. Patient endorses that he receives $1,447 a month from the [facility] and $900 a month in [facility], as well as $200 a month in food stamps. Patient reports concern for his medications and belongings in locked in his vehicle. Patient endorses he is working with [facility] and the [facility] for assistance in obtaining housing. Patient denies any current substance of ETOH use, per medical chart patient was positive for Cocaine on 11/13/20 and endorsed occasional use. Patient endorses that he would like to get to a snf in [place] because he was in the [place]. BILINGUAL SCHOOL PSYCHOLOGIST contacts [facility] (Ph. # ) , [facility] (Ph. # ), and [facility] (Ph. # [phone]) shelters, and leaves [facility] requesting return call. BILINGUAL SCHOOL PSYCHOLOGIST contacts the [facility] (Ph. # ) and they provide contact information for [employer], [employer] and [employer]. BILINGUAL SCHOOL PSYCHOLOGIST calls phone numbers provided and they are not currently in service. It is the opinion of this BILINGUAL SCHOOL PSYCHOLOGIST that patient is safe to d/c to the community. BILINGUAL SCHOOL PSYCHOLOGIST reviews the above with ED provider Dr. Vaughan who indicates understanding and agreement. Per ED provider, Patient is medically clear to d/c to the community. ED provider reports plan to prescribe patient with needed rx and BILINGUAL SCHOOL PSYCHOLOGIST to facilitate taxi voucher to appropriate destination. Plan: patient to d/c to the community with recommendation to f/u with [facility] and resources available to him, BILINGUAL SCHOOL PSYCHOLOGIST to f/u with taxi voucher as needed RON Garcia
[2020-11-15] MEDS: HYDROMORPHONE 0.5 MG INJ IV (15:50)
[2020-11-15] MEDS: CLOPIDOGREL 75 MG TABLET PO (16:27)
[2020-11-15] MEDS: cloNIDine 0.1 MG TABLET 0.3 MG PO (16:27)
== END 2020-11-15 18:35 | disposition home or self-care (01) ==
PROVIDERS: Emergency Provider Emergency Medicine
DX: R07.9 Chest pain, unspecified (principal); I10 Essential (primary) hypertension; R53.1 Weakness; R41.82 Altered mental status, unspecified; Z20.822 Contact with and (suspected) exposure to COVID-19
CPT/HCPCS: 36415; 70450; 71045; 80053; 82550; 83690; 83880; 84484; 85025; 85610; 85730; 87635; 93005; 96361; 96374; 99285; C9803; J1170